=== PATIENT | female | born 1955 | race Caucasian/White ===

== ENCOUNTER 2019-01-21 12:38 | Outpatient (RCR) | payer MEDICARE, SELFPAY ==
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
--- NOTE | 2019-01-21 14:59 | PT.OPPOC ---
Current Diagnoses Cervicalgia (01/21/19) Visit Care Team Role Provider Type DORYS Champagne Primary Care Provider Advanced Piling Setter Specialty: [facility] Practice Address: [address] [place] [address], [address] Email: [email or web address] DORYS Wesley Attending Provider Advanced Piling Setter Specialty: [facility] Address: [address] [place] [address], [address] Email: [email or web address] Plan Of Care PT-OP-T Assessment and Plan Start: 01/21/19 13:03 Freq: Status: Active Protocol: Document 01/21/19 13:05 MB (Rec: 01/21/19 14:51 MB [id number]) Physical Therapy Assessment Goals 1 Short Term Goal (STG) Pt will understand benefits of follow-up with physician about possible post-herpatic treatment. Pt will understand benefits of OPOT for left elbow deficits. Goal met this date, 01/21/19. Progress Towards Goals Progress Towards Goals Goals Met Assessment Summary Assessment Pt is a 63 y/o female presenting with reports of improved neck and right UE C7 distribution pain. She reports ongoing neuropathic pain sxs in right UE C5 distribution in setting of rash and recent shingles. Pt presents with normal right UE strength and prefers seeing her chiropractor for manual care. She presents with left elbow ROM deficits in setting of recent left elbow fx. PT educates pt in the benefits of follow-up with re: possible post-herpatic pain treatment and OPOT for left elbow deficits. No current OPPT needs. Will d/c PT. Physical Therapy Plan Frequency and Duration Frequency of Treatment D/c PT Discharge Physical Therapy Discharge Comments No further OPPT needs at this time.
== END 2019-01-21 13:59 ==
LOC: PHYS 12:38
PROVIDERS: PCP Nurse Practitioner Family; Visit Provider Nurse Practitioner
DX: M54.2 Cervicalgia (principal)
CPT/HCPCS: 97161; 97535

== ENCOUNTER → 2019-08-31 09:34 | Outpatient (CLI) | payer MEDICARE, SELFPAY ==
[2019-08-31 11:46] LABS: Alanine Aminotransferase 22 IU/L (<35); Albumin 4.2 g/dL (3.5-5.0); Albumin Globulin Ratio 1.2 (1.0-2.8); Alkaline Phosphatase 56 U/L (38-126); Aspartate Aminotransferase 29 IU/L (14-36); Bilirubin Total 0.4 mg/dL (0.2-1.3); Blood Urea Nitrogen 18 mg/dL (7-17); Calcium 9.6 mg/dL (8.4-10.2); Carbon Dioxide 27 mmol/L (22-32); Chloride 106 mmol/L (98-107); Cholesterol 192 mg/dL (140-199); Estimated Glomerular Filt Rate > 60.0 mL/min (>60); Globulin 3.4 g/dL (1.7-4.1); Glucose 84 mg/dL (80-110); HDL Cholesterol 44 mg/dL (40-60); HEMOLYSIS < 15 (0-50); LDL Cholesterol Calculated 119 mg/dL (<100); Potassium 4.5 mmol/L (3.4-5.1); Sodium 140 mmol/L (137-145); Total Protein 7.6 g/dL (6.3-8.2); Triglycerides 145 mg/dL (35-150)
[2019-08-31 11:59] LABS: Hemoglobin 12.9 g/dL (12.0-16.0); Mean Corpuscular HGB Conc 33.9 % (30-36); Mean Corpuscular Hemoglobin 31.8 PG (26-34); Platelet Count 238 X10^3/uL (150-400); Red Blood Cell Count 4.04 X10^6/uL (4.0-5.2); Red Cell Distribution Width 14.1 % (11.6-14.8); White Blood Cell Count 4.9 X10^3/uL (4.5-11.0)
[2019-08-31 12:35] LABS: Vitamin B12 951 pg/mL (239-931)
[2019-09-01 00:25] LABS: COVID19 Sendout Not Detected (Not Detect)
== END ==
PROVIDERS: PCP Nurse Practitioner Family; Referring Provider Nurse Practitioner Family; Visit Provider Nurse Practitioner
DX: Z00.00 Encounter for general adult medical examination without abnormal findings (principal); Z13.6 Encounter for screening for cardiovascular disorders; Z01.812 Encounter for preprocedural laboratory examination; R53.83 Other fatigue
CPT/HCPCS: 36415; 80053; 80061; 82607; 85027; 87635

== ENCOUNTER 2019-09-03 08:58 | Day surgery (SDC) | payer MEDICARE, SELFPAY ==
--- NOTE | 2019-09-03 | PATH_ITS ---
[facility] Accession Number: [id number] . 01 Material submitted: . PART A: colon - COLON POLYP AT 130 CM PART B: colon - COLON POLYP AT 45 CM PART C: colon - COLON POLYP AT 20 CM PART D: colon - COLON POLYP AT 10 CM PART E: rectum - RECTAL WALL BIOPSY . 02 Diagnosis: A. Colon, Polyp at 130 cm, Biopsy: Multiple fragments of tubular adenoma. . B. Colon, Polyp at 45 cm, Biopsy: Polypoid granulation tissue, consistent with inflammatory polyp. Negative for dysplasia and malignancy. . C. Colon, Polyp at 20 cm, Biopsy: Tubular adenoma. . D. Colon, Polyp at 10 cm, Biopsy: Invasive adenocarcinoma, moderately differentiated. Arises in a background of tubular adenoma. Lymphovascular invasion not identified. Carcinoma is present at inked, cauterized biopsy edge. Please see comment. . E. Rectal Wall, Biopsy: Hyperplastic rectal mucosa. Negative for dysplasia and malignancy. [facility] 09/06/2019 1436 Local . 02 Comment: D. As part of routine rn clinical quality, Dr. Hardin also reviewed part D and agrees with the diagnosis. Dr. Mckeon gave preliminary results to [place] in Dr. Caceres's office on 09/06/2019. Mismatch repair immunohistochemistry will be performed and the results reported as an addendum. . 02 Electronically signed: . Mariella Mckeon MD, Pathologist NPI- [id number] . 01 Gross description: . A. Received in formalin, labeled polyp at 130 cm, are multiple fragments of goins, soft tissue measuring 1.3 x 0.8 x 0.4 cm in aggregate. All fragments are entirely submitted in cassette A1. B. Received in formalin, labeled colon polyp at 45 cm, are multiple fragments of goins, soft tissue measuring 1.2 x 0.6 x 0.3 cm in aggregate. All fragments are entirely submitted in cassette B1. C. Received in formalin, labeled colon polyp at 20 cm, is one fragment of goins, soft tissue measuring 0.4 x 0.4 x 0.3 cm. The fragment is entirely submitted in cassette C1. D. Received in formalin, labeled CP at 10 cm, are multiple fragments of goins, soft tissue measuring 2.5 x 1.5 x 0.5 cm in aggregate and two larger pieces of goins, soft tissue measuring 2.5 x 2.0 x 1.3 cm to 0.9 x 0.5 x 0.5 cm. The smaller fragments are submitted in aggregate in cassette D1. The first piece of tissue is inked, serially sectioned into six slices, and entirely submitted in cassettes D2 and D3, with three slices per cassette. The second piece of tissue is inked, serially sectioned into four slices, and entirely submitted in cassette D4. E. Received in formalin, labeled rectal wall biopsy, is one fragment of goins, soft tissue measuring 0.4 x 0.3 x 0.3 cm. The fragment is entirely submitted in cassette E1. ([id number]) /FRR 09/04/2019 1024 Local . 02 Pathologist provided ICD-10: C18.9, D12.6 . 02 CPT . 535961, 715861, 180245, 566763, 648400, [id number], [id number] Performed at: 01 [facility] [address] [id number] MD Chevy Baker MD Phone: [phone] Performed at: 02 [facility] [address] [address] [employer], [place] [id number] MD aMriella Mckeon MD Phone: [phone]
[2019-09-03 09:23] VITALS: BP 163/84; PULSE 67; RESP 16; TEMP 36.4; O2SAT 100; BMI 32.9
[2019-09-03] MEDS: SODIUM CHLORIDE 0.9% 1,000 ML 200 ML IV (09:30)
--- NOTE | 2019-09-03 09:43 | PM.HP.1 ---
History of Present Illness History of Present Illness Date Patient Seen: 09/03/19 Time Patient Seen: 09:43 Chief complaint: [id number] Narrative: This is a 64-year-old woman who is never had a colonoscopy. She denies any personal history of hematochezia, melena, unexplained abdominal pain, or unexplained weight loss. She denies any family history of colorectal cancers or polyps. She denies any medical problems or surgical history. She says she does not take any medications. She denies allergies ROS Thirteen system review is otherwise negative other than as mentioned below and in HPI. PE: GENERAL: Well groomed and cooperative. Appears stated age. Answers questions promptly and appropriately. Vital signs noted. HENT: Normocephalic, atraumatic. Hearing intact. EYES: Conjunctiva pink, sclera white, no periorbital swelling. CARDIOVASCULAR: Regular rate. No pedal edema. RESPIRATORY: Non-tachypneic, breathing comfortably on room air. GASTROINTESTINAL: Abdomen soft and non-distended GENITALURINARY: No flank tenderness. MUSCULOSKELETAL: Equal tone and mass bilaterally. SKIN: Warm, dry, soft, appropriate color for ethnicity. No other lesions, rashes, or wounds. NEURO: Alert and Oriented X 3. No gross sensory deficits, or cognitive issues. PSYCH: Appropriate affect and mood. Patient History Medical History Chicken pox (Resolved) Fractures (Resolved ~2011) Surgical History Anesthesia (Resolved) History of nasal surgery (Resolved ~1997) History of surgery on arm (Resolved ~2011) Family & Social History Family History Mother Hypertension Hyperlipidemia Social History: household members spouse Tobacco & Substance use: Smoking Status Never smoker alcohol intake current alcohol intake frequency holiday/special occasion Substance Use Type does not use Meds Home Medications and Allergies Home Medications Medication Instructions Recorded Confirmed Type EHT PO 12/22/18 History Probiotic PO 12/22/18 History cholecalciferol (vitamin D3) 100 4,000 unit PO DAILY 12/22/18 12/22/18 History mcg (4,000 unit) capsule Allergies Allergy/AdvReac Type Severity Reaction Status Date / Time No Known Drug Allergies Allergy Verified 09/03/19 09:11 Exam Vital Signs (past 8 hours): - 09/03/19 09:23 Temperature 97.5 F L Pulse Rate 67 Respiratory Rate 16 Blood Pressure 163/84 H Pulse Oximetry 100 Oxygen Delivery Method Room Air Assessment & Plan Assessment & Plan narrative: Risks and benefits of screening colonoscopy and possible polypectomy were discussed with the patient including risk of bleeding, perforation, need for additional procedures, risks of anesthesia. The patient desires to proceed with the colonoscopy procedure. COVID-19 COVID-19 status: Negative Result date/Date tested (Pos, Neg/Pending): 08/31/19 Time Spent With Patient Time with patient: 15-24 minutes
--- NOTE | 2019-09-03 09:48 | P.OP.ENDO_ITS ---
Operative Date/Time/Diagnoses Date of procedure: 09/03/19 Time of procedure: 09:49 Pre-op diagnosis: Average risk for colon cancer, no prior colonoscopy Procedure & Clinicians Study performed: 1. Colonoscopy, polypectomy times 3 with hot snare 2. Polypectomy x1 with cold forceps 3. Rectal wall biopsy x1 with cold forceps 4. Tattoo of rectum at location of large polyp removed piecemeal and rectal wall biopsy Same procedure as scheduled: Yes Indications: 64-year-old woman who never had a colonoscopy before Surgeon: Sendy Caceres Procedure Notes SCOAP/Timeout: Performed Procedure in detail: The patient was brought to the room and placed in left lateral decubitus position with all bony prominences padded. A time-out was performed and then the patient was given procedural sedation starting with 2 mg of Versed and 100 mcg of fentanyl. She received a total of 5 mg of Versed and 200 micro g of fentanyl for the procedure. Vitals were monitored throughout the procedure and remained stable. Once adequately sedated, the procedure was begun. A rectal exam was performed revealing no abnormalities. The colonoscope was then introduced to the rectum and advanced to the cecum in the usual fashion. The cecum was identified by the appendiceal orifice, the mucosal tri- fold, and the ileocecal valve. The scope was then retracted while rotating side to side and examining each mucosal fold. A 1 cm polyp was found at 130 cm and removed completely with hot snare. A complex polyp was seen at 45 cm with both a pedunculated and sessile component. It was removed piecemeal with hot snare and cold forceps. Small polyp was seen at 27 cm which was removed completely with cold forceps. A large 2 cm polyp was seen at 10 cm in the rectum, and was removed piecemeal. The area was tattooed in 5 locations above and below the polypectomy site with 1 cc per location. The rectal wall next to the polyp was biopsied as it appeared to be hypercellular and abnormal although not part of the polyp. At the conclusion of the procedure retroflexion was performed and small grade 1-2 internal hemorrhoids without stigmata of bleeding were seen. The scope was then withdrawn from the rectum the procedure was concluded. The patient tolerated the procedure well and was transferred to the PACU in stable condition. Scope withdrawal time: 38 Sedation minutes: 49 Findings: possible cancer and other findings (Multiple polyps, 1 very large in the rectum with surrounding mucosal abnormality) Specimen(s): other (Polyp from 130 cm, polyp from 45 cm, polyp from 27 cm, polyp from 10 cm, rectal wall biopsy from 10 cm) Impression: Multiple polyps of various sizes including 1 very large polyp in the rectum which is suspicious for cancer. Post-procedure Recommendations: Other recommendation (Follow-up on pathology results, and meet back in the office to discuss next steps depending on the pathology results) Follow up: weeks (Follow-up in my office in 1 week to discuss pathology results) Disposition: PACU
[2019-09-03] MEDS: MIDAZOLAM 5 MG/5 ML VIAL IV (09:50)
[2019-09-03] MEDS: fentaNYL 250 MCG/5 ML INJ IV (09:51)
[2019-09-03] MEDS: fentaNYL 100 MCG/2 ML INJ IV (10:02)
[2019-09-03 10:46] VITALS: BP 146/78; PULSE 60; RESP 16; TEMP 36.4; O2SAT 100
[2019-09-03 10:50] VITALS: BP 150/77; PULSE 64; RESP 16; O2SAT 100
[2019-09-03 11:14] VITALS: BP 149/72; PULSE 59; RESP 16; TEMP 36.4; O2SAT 97
== END 2019-09-03 11:24 | disposition home or self-care (01) ==
PROVIDERS: PCP Nurse Practitioner Family; Referring Provider Surgery; Visit Provider Surgery
PROC: 0DJD8ZZ Inspection of Lower Intestinal Tract, Via Natural or Artificial Opening Endoscopic (ICD-10-PCS; CPT 45378; principal; 2019-09-03 10:00)
DX: K64.0 First degree hemorrhoids (principal); D12.6 Benign neoplasm of colon, unspecified; C18.9 Malignant neoplasm of colon, unspecified; Z12.11 Encounter for screening for malignant neoplasm of colon
CPT/HCPCS: 45385; 45380; 45381; 99152; 99153; J2250; J3010

== ENCOUNTER → 2019-09-28 09:45 | Outpatient (CLI) | payer MEDICARE, SELFPAY ==
[2019-09-28 10:28] LABS: Estimated Glomerular Filt Rate > 60.0 mL/min (>60)
--- NOTE | 2019-09-28 10:49 | DI.CT.S_ITS ---
PROCEDURE: CT CHEST ABD PEL W CON INDICATIONS: colon cancer, rule out metastatic disease TECHNIQUE: After the administration of intravenous contrast, 5 mm thick sections acquired from the lung apices to the symphysis. 5 mm coronal and sagittal reformats were performed, with additional 7 mm MIP reformats through the lungs. For radiation dose reduction, the following was used: automated exposure control, adjustment of mA and/or kV according to patient size. COMPARISON: None. FINDINGS: Image quality: Excellent. CHEST: Lungs and pleura: No acute airspace opacities. Mild pleural apical scarring. 3 mm pulmonary nodule in the left lower lobe, (2/231). No mass. No pleural effusions or pneumothorax. Central and peripheral airways appear patent and normal in caliber. Mediastinum: Heart size is normal. No pericardial effusion. No mediastinal or hilar adenopathy by size criteria. Thoracic aorta and central pulmonary arteries are normal in size. Focus of gas in the main pulmonary artery likely iatrogenic. Esophagus is normal in caliber. Small hiatal hernia. Chest wall: No axillary or supraclavicular adenopathy by size criteria. Thyroid gland is unremarkable. ABDOMEN: Solid organs: Liver is normal in size and enhancement. No focal hepatic lesion. Gallbladder is distended. No gallstones seen. No pericholecystic fluid. Biliary system is non dilated. Pancreas enhances normally. Spleen is normal in size and enhancement. No adrenal nodules. Kidneys demonstrate normal size and enhancement, without hydronephrosis. Peritoneum and bowel: Bowel loops demonstrate normal wall thickness and caliber. Diverticulosis. Appendix is within normal limits in caliber. There is a small calcified appendicoliths, (4/93). No free fluid or air. Nodes and vessels: No retroperitoneal or mesenteric adenopathy by size criteria. Small right lower quadrant lymph nodes. No obvious mesorectal lymph nodes. Aorta and inferior vena cava are normal in size. Miscellaneous: No ventral hernias. PELVIS: Genitourinary: Bladder wall thickness is normal. Retroverted uterus. Miscellaneous: No inguinal hernias or adenopathy. Right buttocks injection granuloma. Bones: No suspicious bony lesions. No vertebral body compression fractures. IMPRESSION: No metastatic disease identified. No focal hepatic lesions seen. No enlarged adenopathy. A 3 mm pulmonary nodule in the left lower lobe. Unlikely significant in the absence of other sites of metastatic disease. Dictated by: Ephraim Qureshi M.D. on 09/28/2019 at 11:40 Approved by: Ephraim Qureshi M.D. on 09/28/2019 at 11:52
== END ==
PROVIDERS: PCP Nurse Practitioner Family; Referring Provider Surgery; Visit Provider Surgery
DX: C20 Malignant neoplasm of rectum (principal); R91.1 Solitary pulmonary nodule
CPT/HCPCS: 36415; 71260; 74177; 82565; Q9967

== ENCOUNTER → 2019-10-04 14:15 | Outpatient (CLI) | payer MEDICARE, SELFPAY ==
--- NOTE | 2019-10-04 14:19 | DI.MRI.S_ITS ---
PROCEDURE: MR PELIS WO/W CON INDICATIONS: Evaluate stage of rectal cancer TECHNIQUE: Coronal HASTE, sagittal T2 FSE, axial T1 FSE, axial and coronal nonbreath-hold T2 FSE. Axial dynamic VIBE during administration of contrast. Post-contrast axial and coronal VIBE/2-D FLASH with fat saturation from the iliac crests to the symphysis. Optional diffusion weighted imaging and ADC may be performed. COMPARISON: [facility], CT, CT CHEST ABD PEL W CON, 09/28/2019, 10:45. FINDINGS: Image quality: Excellent. Rectum: Morphology: Semi circumferential, with relatively sparing of only a small portion of the anterior wall of the rectum. This morphology is best seen inferiorly, series 4, image 14. There is craniocaudad extensive tumor where circumferential involvement likely is present at the upper 3rd of the rectum morphologically. Clock face of tumor involvement: 11:00 a.m.-1:00 a.m. Involvement inferiorly, see series 4, image 14. Mucinous (high T2 signal): Absent. Craniocaudal length: 6.1 cm Distance to anal verge: 2.4 cm, with tumor tapering to the upper margin of the anal-rectal junction. Distance to top of sphincter complex/anorectal junction: The tapering inferior margin of the tumor is well-visualized on series 6, image 10, extending virtually to apposition of the upper border of the anal-sphincter complex. Relationship to inferior peritoneal reflection: Tapering superiorly, and terminating just above the inferior peritoneal reflection. Tumor at or below puborectalis sling: Tumor involvement appears to extend below the puborectalis sling. T staging: Depth of extramural invasion: None found.. Extramural vascular invasion: None found. T3 tumors only: distance to mesorectal fascia (circumferential resection margin): Not applicable Pelvic organ involvement: Genitourinary: None. Pelvic sidewall (obturator internus, piriformis, ischiococcygeus muscles): None. Pelvic floor (pubococcygeus, iliococcygeus, puborectalis, levator plate): None. Sacrum: None. Vessels (internal and external iliac arteries and veins): None. Nerves (lumbosacral nerve roots): None. Regional lymph nodes (mesorectal, inguinal, iliac): None found. Other bowel and peritoneum: No pathologic free pelvic fluid. More proximal colon and small bowel loops are normal in caliber. Bones: Marrow is normal in overall signal. IMPRESSION: The rectal carcinoma present where well visualized is semi circumferential inferiorly and may become circumferential more superiorly at approximately the peritoneal reflection level and just below. The involvement tapers inferiorly and terminates at the upper margin of the anal-rectal junction. Direct invasion through the rectal serosal surface is not found, no adjacent adenopathy is seen. No regional metastatic disease is identified. Dictated by: Speedy Baker M.D. on 10/04/2019 at 16:37 Approved by: Speedy Baker M.D. on 10/04/2019 at 16:55
== END ==
PROVIDERS: PCP Nurse Practitioner Family; Referring Provider Surgery; Visit Provider Surgery
DX: C20 Malignant neoplasm of rectum (principal)
CPT/HCPCS: 72197; A9579

== ENCOUNTER → 2019-10-14 11:32 | Outpatient (CLI) | payer MEDICARE, SELFPAY ==
[2019-10-14 12:31] LABS: Carcinoembryonic Antigen 0.5 ng/mL (0.1-3.0)
== END ==
PROVIDERS: PCP Nurse Practitioner Family; Referring Provider Surgery; Visit Provider Surgery
DX: C20 Malignant neoplasm of rectum (principal)
CPT/HCPCS: 36415; 82378; 99214

== ENCOUNTER → 2019-11-22 11:50 | Outpatient (CLI) | payer MEDICARE, SELFPAY ==
--- NOTE | 2019-11-22 12:10 | DI.MG.S_ITS ---
Patient Name: CHRISTINA SINGLETARY date: 1955 Sex: F Attending Physician: Sridevi Indications: Date: 11/22/2019 11:53 At the request of: SHANNON LOCKHART Procedure: MM screening mammo BI BILATERAL DIGITAL SCREENING MAMMOGRAM 3D/2D WITH CAD: 11/22/2019 CLINICAL: Routine screening. Comparison is made to exams dated: 02/19/2017 mammogram, 04/22/2014 mammogram, and 04/05/2014 mammogram - outside location. There are scattered fibroglandular elements in both breasts. Current study was also evaluated with a Computer Aided Detection (CAD) system. There is a new focal asymmetry in the left breast central to the nipple posterior depth. No other significant masses, calcifications, or other findings are seen in either breast. IMPRESSION: INCOMPLETE: NEEDS ADDITIONAL IMAGING EVALUATION The new focal asymmetry in the left breast likely represents a cyst and is indeterminate. Additional views with possible ultrasound are recommended. This exam was interpreted at Station ID: [id number]. NOTE: For mammograms, a report in lay terms will be sent to the patient. Approximately 15% of breast malignancies will not be visualized mammographically. In the management of a palpable breast mass, a negative mammogram must not discourage biopsy of a clinically suspicious lesion. Electronically Signed By: Shavon ramirez/citlalli:11/22/2019 15:33:31 letter sent: Additional Imaging Needed ACR BI-RADS Category 0: Incomplete [id number]
== END ==
PROVIDERS: PCP Nurse Practitioner Family; Referring Provider Nurse Practitioner Family; Visit Provider Nurse Practitioner Family
DX: Z12.31 Encounter for screening mammogram for malignant neoplasm of breast (principal)
CPT/HCPCS: 77063; 77067

== ENCOUNTER → 2020-01-06 09:37 | Outpatient (CLI) | payer MEDICARE, SELFPAY ==
--- NOTE | 2020-01-06 09:40 | DI.US.S_ITS ---
LIMITED ULTRASOUND OF LEFT BREAST AND AXILLA: 01/06/2020 CLINICAL: Patient returns today to evaluate a focal asymmetry in the left breast. Comparison is made to exams dated: 01/06/2020 mammogram, 11/22/2019 mammogram - [facility], and 02/19/2017 mammogram - outside location. Color flow ultrasound of the left breast axilla was performed. Mckeon scale images of the real-time examination were reviewed. There is a 0.4 cm x 0.5 cm x 0.5 cm taller than wide irregular mass with a circumscribed margin in the left breast at 4 o'clock posterior depth 9 cm from the nipple. This irregular mass is hypoechoic. This correlates with mammography findings. No significant abnormalities were seen sonographically in the left axilla. IMPRESSION: SUSPICIOUS OF MALIGNANCY The 0.4 cm x 0.5 cm x 0.5 cm taller than wide irregular mass in the left breast is at a low suspicion for malignancy. An ultrasound guided biopsy is recommended. The findings and recommendations were discussed with the patient by the onsite radiologist, Dr. Forbes, at the time of the exam. This exam was interpreted at Station ID: [id number]. Electronically Signed By: Wayne núñez/citlalli:01/06/2020 12:08:15 letter sent: Biopsy Required Ultrasound BI-RADS: 4a Low suspicion for malignancy
--- NOTE | 2020-01-06 09:40 | DI.MG.S_ITS ---
UNILATERAL LEFT DIGITAL DIAGNOSTIC MAMMOGRAM 3D/2D WITH ADDITIONAL VIEWS: 01/06/2020 CLINICAL: Additional evaluation requested from prior study. Comparison is made to exams dated: 11/22/2019 mammogram - [facility], 02/19/2017 mammogram, and 04/22/2014 mammogram - outside location. There are scattered fibroglandular elements in left breast. There is a new 4 mm focal asymmetry in the left breast at 4 o'clock posterior depth. This is seen in additional views. No other significant masses or calcifications are seen in the breast. IMPRESSION: INCOMPLETE: NEEDS ADDITIONAL IMAGING EVALUATION The new 4 mm focal asymmetry in the left breast is indeterminate. An ultrasound is recommended. This exam was interpreted at Station ID: [id number]. NOTE: For mammograms, a report in lay terms will be sent to the patient. Approximately 15% of breast malignancies will not be visualized mammographically. In the management of a palpable breast mass, a negative mammogram must not discourage biopsy of a clinically suspicious lesion. SUMMARY: Targeted ultrasound is recommended for further evaluation and will be scheduled immediately following this exam. Electronically Signed By: Wayne núñez/citlalli:01/06/2020 12:05:11 ACR BI-RADS Category 0: Incomplete [id number]
== END ==
PROVIDERS: PCP Nurse Practitioner Family; Referring Provider Nurse Practitioner Family; Visit Provider Nurse Practitioner Family
DX: R92.8 Other abnormal and inconclusive findings on diagnostic imaging of breast (principal); N63.23 Unspecified lump in the left breast, lower outer quadrant
CPT/HCPCS: 76642; 77065; G0279

== ENCOUNTER → 2020-02-23 | Outpatient (CLI) | payer MEDICARE, SELFPAY ==
--- NOTE | 2020-02-23 | PATH_ITS ---
[facility] Accession Number: [id number] . 01 Material submitted: . breast - LEFT BREAST MASS 4:00 9CMFN . 02 Diagnosis: Left Breast, Mass 4 o'clock 9 cm FN, Core Needle Biopsies: At least atypical ductal hyperplasia. Please see comment. MRV 03/01/2020 1431 Local . 02 Comment: The core needle biopsies show reactive stromal changes and possible edge of the lesion of interest with at least atypical ductal hyperplasia. In an area of reactive changes there are a few scattered single cells of interest adjacent to group of cells with focal loss of myosin and p63. However, additional H/E levels performed for further characterization do not contain the area of interest. Complete excision of the lesion is recommended for complete characterization. This case was also reviewed by Dr. Mi Ervin and Dr. Hardin, who agree with the interpretation. . 02 Electronically signed: . Mariella Mckeon MD, Pathologist NPI- [id number] . 01 Gross description: . Received one formalin-filled container, labeled with the patient's name and designated left breast mass 4 o'clock 9 cm FN. The specimen is received with a plastic filter in container, sample loose in container and consists of multiple fragments of yellow-goins soft tissue which range in size from 0.1 x 0.1 x 0.1 cm to 1.5 x 0.2 x 0.2 cm. The specimen is entirely submitted in one cassette. Collection date per container: 02/23/20. Possible collection time per requisition: 14:45. Total fixation time: Approximately 12 hours. (DC:[id number]) /ASHA 02/24/2020 0237 Local . 02 Microscopic: . Immunohistochemical stains were performed in an attempt to characterize the area of interest. All control stains showed appropriate reactivity. The myosin and p63 stains show focal apparent loss of myoepithelial cells around an area of interest. Please see interpretation. . INTERPRETATION: One of the areas of interest shows focal loss of myosin and p63. In an attempt to further characterize this lesion by examining deeper levels reveals that the area of interest is no longer present in the deeper levels. . * This test was developed and its performance characteristics determined by [facility]. It has not been cleared or approved by the U.S. Food and Drug Administration. The FDA has determined that such clearance or approval is not necessary. This test is used for clinical purposes. It should not be regarded as investigational or for research. . 02 Pathologist provided ICD-10: R92.8 . 02 CPT . 144442, X87327, O43019 Performed at: 01 [facility] [address] [id number] MD Chevy Baker MD Phone: [phone] Performed at: 02 [facility] [address] [place], [place] [id number] MD Mariella Mckeon MD Phone: [phone]
--- NOTE | 2020-02-23 | DI.MG.S_ITS ---
UNILATERAL LEFT DIGITAL DIAGNOSTIC MAMMOGRAM POST-NEEDLE BIOPSY: 02/23/2020 CLINICAL: Abnormal mammogram. Comparison is made to exams dated: 01/06/2020 mammogram, 11/22/2019 mammogram - [facility], and 02/19/2017 mammogram - outside location. There are scattered fibroglandular elements in left breast. There is a marker clip in the appropriate position in the left breast at 4 o'clock This marker clip placement is at the biopsy site. IMPRESSION: POST PROCEDURE MAMMOGRAM FOR MARKER PLACEMENT There was a successful marker clip placement in the left breast middle depth. This exam was interpreted at Station ID: [id number]. NOTE: For mammograms, a report in lay terms will be sent to the patient. Approximately 15% of breast malignancies will not be visualized mammographically. In the management of a palpable breast mass, a negative mammogram must not discourage biopsy of a clinically suspicious lesion. Electronically Signed By: Beto whitmore/:02/23/2020 15:59:01 ACR BI-RADS Category Post-procedure mammogram for marker placement
--- NOTE | 2020-02-23 13:36 | DI.US.S_ITS ---
ULTRASOUND GUIDED BIOPSY LEFT BREAST USING VACUUM DEVICE WITH MARKING DEVICE INSERTED AND POST DIGITAL MAMMOGRAPHIC IMAGIN02/23/2020 CLINICAL: Left breast mass. PATIENT CONSENT: Risks (minor bleeding, infection, vasovagal reaction and repeat procedure), benefits and alternatives were explained to the patient and written informed consent was obtained. Correlation is made to exams dated: 02/23/2020 mammogram, 01/06/2020 ultrasound, 01/06/2020 mammogram, 11/22/2019 mammogram - [facility], 02/19/2017 mammogram, and 04/22/2014 mammogram - outside location. An ultrasound guided biopsy using real-time ultrasound was performed for the 0.5 cm x 0.4 cm x 0.3 cm taller than wide circumscribed oval mass located in the left breast at 4 o'clock middle depth 9 cm from the nipple. This was described on the previous mammography and ultrasound reports. The skin was prepped in the usual manner. Local anesthetic was administered to the access site. A skin murphy was made in the breast. The abnormality was approached from the lateral aspect. A 13 gauge biopsy needle was placed adjacent to the abnormality under ultrasound guidance. Once the needle was documented to be in the correct location, five specimens were obtained using the Mammotome biopsy system. The patient received additional local anesthetic during the procedure. A Vision clip was inserted into the biopsy cavity. A skin adhesive and a sterile dressing were applied to the access site. Post procedure digital mammographic imaging demonstrates the location device at the targeted area. The specimens were sent to the laboratory for pathological analysis. IMPRESSION: ULTRASOUND GUIDED BIOPSY HIGH RISK BENIGN Ultrasound guided biopsy of the 0.5 cm taller than wide mass in the left breast at 4 o'clock middle depth 9 cm from the nipple was successful. Pathology indicates high risk benign atypical ductal hyperplasia (ADH). Pathology results are concordant with imaging findings. A surgical consultation is recommended. This exam was interpreted at Station ID: [id number]. Beto whitmore,slc/:03/06/2020 12:40:44
== END ==
LOC: US 13:36
PROVIDERS: PCP Nurse Practitioner Family; Referring Provider Nurse Practitioner Family; Visit Provider Nurse Practitioner Family
DX: N60.92 Unspecified benign mammary dysplasia of left breast (principal)
CPT/HCPCS: 19083; 77065

== ENCOUNTER → 2020-04-04 15:19 | Outpatient (CLI) | payer MEDICARE, SELFPAY ==
[2020-04-04 16:13] LABS: COVID19 -Nasal RAPID Negative (Negative)
== END ==
PROVIDERS: PCP Nurse Practitioner Family; Visit Provider Surgery
DX: Z01.812 Encounter for preprocedural laboratory examination (principal); Z20.822 Contact with and (suspected) exposure to COVID-19
CPT/HCPCS: 87635; C9803

== ENCOUNTER 2020-04-05 06:55 | Day surgery (SDC) | payer MEDICARE, SELFPAY ==
--- NOTE | 2020-04-05 | DI.MG.S_ITS ---
UNILATERAL LEFT DIGITAL DIAGNOSTIC MAMMOGRAM POST-NEEDLE BIOPSY: 04/05/2020 CLINICAL: Left breast lump. Comparison is made to exams dated: 02/23/2020 mammogram, 01/06/2020 mammogram, and 11/22/2019 mammogram - [facility]. There are scattered fibroglandular elements in left breast. There is a marker clip in the appropriate position in the left breast at 4 o'clock middle depth. There is wire localization IMPRESSION: POST PROCEDURE MAMMOGRAM FOR MARKER PLACEMENT Successful wire localization. Recommend specimen radiograph. This exam was interpreted at Station ID: [id number]. NOTE: For mammograms, a report in lay terms will be sent to the patient. Approximately 15% of breast malignancies will not be visualized mammographically. In the management of a palpable breast mass, a negative mammogram must not discourage biopsy of a clinically suspicious lesion. Electronically Signed By: Beto whitmore/:04/05/2020 10:30:47 ACR BI-RADS Category Post-procedure mammogram for marker placement
--- NOTE | 2020-04-05 | DI.MG.S_ITS ---
SPECIMEN LEFT BREAST: 04/05/2020 CLINICAL: Left breast specimen. Correlation is made to exams dated: 04/05/2020 mammogram, 02/23/2020 ultrasound biopsy, and 02/23/2020 mammogram - [facility]. A surgical biopsy specimen was imaged for the previous biopsy site located in the left breast at 4 o'clock middle depth. IMPRESSION: SPECIMEN The imaged specimen includes a biopsy clip and the distal portion of the localization wire. Waiting for pathology results. A final report will be issued when these become available. This exam was interpreted at Station ID: [id number]. Beto whitmore/:04/05/2020 14:18:18
--- NOTE | 2020-04-05 | PATH_ITS ---
[facility] Accession Number: [id number] . 01 Material submitted: . breast - LEFT BREAST LUMPECTOMY . 01 Clinical history: . LEFT BREAST LUMPECTOMY, WIRE IS LATERAL, DOUBLE STITCH IS DEEP, SINGLE IS SUPERIOR . 01 Diagnosis: A. 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 Extent: Present on one slide, largest microscopic dimension of 4 x 3 mm. 2. Nuclear grade: Low to intermediate. 3. Architectural pattern: Papillary, cribriform, and focally solid. 4. Necrosis: Not identified. 5. Calcifications: focally present, in association with benign breast tissue. 6. Resection margins: Negative, with the following distances to the closest margins: - Inferior margin: 3 mm. - Posterior margin: 5.5 mm. - All other margins: More than 10 mm. 7. Prognostic markers, performed on block A14, with the following findings: - Estrogen receptor status: Positive (more than 99% tumor cells staining, staining intensity: Strong). - Progesterone receptor status: Positive (95% tumor cells staining, staining intensity: Strong). - HER2: Negative by immunohistochemistry (0-1+). 8. Other findings: - Focal atypical lobular hyperplasia and focal flat epithelial atypia. - Background breast with fibrocystic change including columnar cell changes/columnar cell hyperplasia, focal cystic duct dilatation, focal sclerosing adenosis, and cystic apocrine metaplasia. - Biopsy site changes and clip are present. 9. Skin and nipple are not present for evaluation. 10. Regional lymph node status: No lymph nodes found or submitted. 11. Pathologic stage: pTis . COMMENT: The lesion consists of a 4 mm well-circumscribed multinodular proliferation of papillary carcinoma surrounded by thinly fibrotic stroma. The cells are round to ovoid with ample pink to best cytoplasm, low to intermediate nuclear grade, and show cribriform, papillary, and focally solid growth patterns with discrete papillae. Focally, within the contours of the lesion, and not outside, irregular glandular nests are present within a fibrotic stroma with hemosiderin-laden macrophages/background of biopsy site changes. Ancillary studies demonstrate loss of myoepithelial cells within these nests, within the fibrovascular cores and at the periphery of the lesion. Given the biopsy site changes, these findings do not support unequivocal renae conventional invasive adenocarcinoma, and are considered secondary to the biopsy site changes. 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 MRV 04/13/2020 0945 Local . 01 Electronically signed: . Anh Franks MD, Pathologist NPI- [id number] . 01 Gross description: . The specimen is received in formalin, labeled left breast lumpectomy and consists of a left lumpectomy specimen. Weight: 39 grams. Measurement: 8.2 cm from medial to lateral by 4.5 cm from anterior to posterior by 3.0 cm from superior to inferior. Skin Ellipse: Absent. Wire: Present penetrating the lateral inferior aspect. Margins: The specimen is oriented with a wire designated lateral, a double suture designated deep, and a single suture designated superior. The specimen is inked as follows: superior blue, inferior green, anterior red, posterior black, medial yellow and lateral orange. Sliced: From lateral to medial into 16 slices. There is a silver metallic balloon-shaped biopsy clip within slice 7 and a 0.3 x 0.3 x 0.3 cm firm goins-white biopsy site within slices 10 and 11. Distance to margins from biopsy site: 0.5 cm from the inferior margin, 0.7 cm from the posterior margin, 1.5 cm from the superior margin, and greater than 2 cm from all remaining margins. Other: Remaining cut surfaces are composed of approximately 85% goins-yellow lobulated adipose tissue and 15% goins-white fibrous tissue. Propellant Assembler sections are submitted. A1: slice 1, hobbies and crafts sales representative perpendicular sections of lateral margin. A2-A5: hobbies and crafts sales representative slices 2-5, lateral to biopsy marker (superior, inferior and posterior margins). A6: slice 6, lateral to biopsy marker (superior inferior and posterior margins). A7-A9: slice 7, site of biopsy marker, trisected and entirely submitted. A10: slice 8, medial to biopsy marker, inferior and posterior margins. A11: slice 9, medial to biopsy marker and lateral to biopsy site, superior, inferior and posterior margins. A12-A13: slice 10, biopsy site, bisected and entirely submitted. A14-A15: slice 11, biopsy site, bisected and entirely submitted. A16-A18: slices 12-14, medial to biopsy site, superior, inferior and posterior margins. A19: slice 15, entirely submitted. A20: slice 16, hobbies and crafts sales representative perpendicular sections of medial margin. Formalin fixation time: Approximately 64 hours. (EA:cmc10 [id number]) /MRV 04/07/2020 1124 Local . 01 Microscopic: . Myoepithelial markers are performed on block A14 in order to evaluate the papillary carcinoma; external and internal controls for all markers are staining appropriately. The papillary carcinoma shows the following immunoprofile: . * P63: Completely lost within the lesion and its periphery. * Smooth muscle myosin: Lost within the lesion and its periphery (although focal staining is present, it is wispy and faint, and along with the immunohistochemical findings of p63, it is considered lost and likely secondary to staining of capillary vessels). * CK5/6: Completely lost within the lesion and its periphery. . - In block A12, a focal intraductal lobular proliferation is noted. Beta-catenin and e-cadherin immunostains, with appropriately staining external controls, are performed and are attenuated/lost within this focus, in support of focal atypical lobular hyperplasia. . Predictive marker immunohistochemical studies are performed on block A14 with the papillary carcinoma showing the following results: . Estrogen receptor (SP1): Positive (more than 99% tumor cells staining, strong intensity). Progesterone receptor (1E2): Positive (90% of tumor cells staining, strong intensity). HER2 (4B5): Negative by immunohistochemistry (0-1+). . Internal controls for ER and GA are present. Cold ischemic time is <5 minutes. The scoring criteria for breast biomarkers by immunohistochemistry is based on the ASCO/CAP guidelines (Mark AC et al, J Clin Oncol: 2018 Sep 16;36(20):6905-0437 and Lula SANTACRUZ et al, Arch Pathol Lab Med: 2009;134(6):907-62). Deparaffinized sections of formalin fixed tissue (along with appropriate positive controls) are incubated with the above antibody(s). Using the automated [place] stainer, tissue is incubated with the designated antibody which is then localized by a non-biotin, dual polymer detection system. The external controls are reviewed for appropriate reactivity and found to be adequate. Results on the target cell population are indicated above. These tests have not been validated on decalcified tissue. This test was developed and its performance characteristics determined by [employer]. It has not been cleared or approved by the U.S. Food and Drug Administration. The FDA has determined that such clearance or approval is not necessary. This test is used for clinical purposes. It should not be regarded as investigational or for research. . 01 Pathologist provided ICD-10: D05.82 . 01 CPT . 971655, T39029, Y09818, 386833, 200546, 042278 Performed at: 01 [facility] [address] [place] [address], [place], [place] [id number] MD Chevy Baker MD Phone: [phone]
--- NOTE | 2020-04-05 06:59 | DI.US.S_ITS ---
ULTRASOUND GUIDED WIRE LOCALIZATION LEFT BREAST: 04/05/2020 CLINICAL: Left breast lump. Correlation is made to exams dated: 04/05/2020 specimen, 04/05/2020 mammogram, 02/23/2020 ultrasound biopsy, 02/23/2020 mammogram, 01/06/2020 ultrasound, and 01/06/2020 mammogram - [facility]. A wire localization using ultrasound guidance was performed for the marker clip located in the left breast at 4 o'clock anterior depth. The skin was prepped in the usual manner. Local anesthetic was administered to the access site. The localization was approached from the lateral aspect. A wire was inserted into the targeted area under ultrasound guidance. IMPRESSION: WIRE LOCALIZATION Wire localization for the marker clip in the left breast at 4 o'clock anterior depth was successful. Waiting for pathology results. A final report will be issued when these become available. This exam was interpreted at Station ID: [id number]. Beto whitmore/:04/05/2020 14:20:08
[2020-04-05 07:09] VITALS: BP 148/81; PULSE 64; RESP 16; TEMP 36.2; O2SAT 99; BMI 31.7
[2020-04-05] MEDS: LACTATED RINGERS 1,000 ML 42 ML IV (09:17)
--- NOTE | 2020-04-05 09:19 | SUR.PREOP ---
Patient back from Mammo in stable condition. Denies any pain. Awaiting anesthesiology.
--- NOTE | 2020-04-05 09:57 | PM.PREOP ---
Pre-operative Note COVID-19 COVID-19 status: Negative Result date/Date tested (Pos, Neg/Pending): 04/04/20 Interval Note History & Physical reviewed/Exam performed by Physician: Yes Changes to H&P: No
[2020-04-05] MEDS: CEFAZOLIN 2 GM/100 ML FROZ.PIGGY IV (10:04)
--- NOTE | 2020-04-05 10:09 | SUR.OPER ---
Supine on padded OR bed, head on pillow, arms secured on padded arm boards at <90 degrees abduction, legs uncrossed, safety belt at thigh, tape over blanket over lower legs.
[2020-04-05] MEDS: BUPIVACAINE 0.25% W/ EPI (PF) 10 ML VIAL 20 ML INJ (10:22)
--- NOTE | 2020-04-05 10:59 | PM.OP.1 ---
Operative Date/Time/Diagnoses Date of procedure: 04/05/20 Time of procedure: 10:59 Pre-op diagnosis: left breast mass, atypical ductal hyperplasia Post-op diagnosis: same Procedure & Clinicians Procedure: Left breast lumpectomy for excisional biopsy with wire localization Same procedure as scheduled: Yes Indications: Left breast mass, atypical ductal hyperplasia on biopsy Surgeon: Sendy Caceres Click Yes if Unassisted: Yes Anesthesia Type: General Operative Notes Findings: on post op mammogram wire, specimen, and radiographic abnormality contained in specimen Specimen(s): other (left breast lumpectomy: wire latera, double stitch deep, single stitch superior) Estimated Blood Loss (mL): 2 Procedure in detail: The patient was brought into the OR and placed supine on the OR table. Sequential compression devices were placed on both legs and turned on. General anesthesia was induced and the patient was intubated by the anesthesiologist. Appropriate perioperative antibiotics were given. Surgical time out was performed. The left breast, chest wall and axilla were prepped and draped in sterile fashion. Surgical time out was performed. Local anesthetic was infiltrated into the skin at the appropriate location in the lower outer quadrant of the left breast, and a curvilinear incision was made at that site. Dissection was carried laterally between the subcutaneous fat and the breast tissue until the entry site of the wire was found, and the wire was clamped to the specimen to secure it, and then the remaining wire was brought into the wound from the outside. Dissection was continued circumferentially encompassing the mass, the wire, and the clip. Once the entire specimen was excised, it was marked and passed off the table for radiologic evaluation. Attention was then turned to the surgical wound. The wound was irrigated, and hemostasis was ensured with cautery. Additional local anesthetic was given in the skin, dermis, and subcutaneous fat using a total of 20 mL of 0.25% Marcaine with epi. At this point the dermis was closed with running 3-0 Vicryl suture. The skin was closed with running 4-0 Monocryl, and the skin edges were sealed with Dermabond. We received a call back from Radiology reporting that the specimen was appropriate, including the wire, the clip, and the mammographic abnormality. At this point the patient was transferred onto her hospital bed, and a breast binder was placed with extra padding in the lower outer quadrant of the left breast. The patient was then awakened from anesthesia and extubated. Needle sponge and instrument counts were correct x 2. The patient was transferred to the PACU in stable condition. Complications: none Post-operative Condition: stable Disposition: PACU
[2020-04-05 11:05] VITALS: BP 141/63; PULSE 84; RESP 12; TEMP 35.9; O2SAT 97
[2020-04-05 11:10] VITALS: BP 142/73; PULSE 73; RESP 12; O2SAT 98
[2020-04-05 11:15] VITALS: BP 145/72; PULSE 79; RESP 12; O2SAT 97
[2020-04-05 11:20] VITALS: BP 126/73; PULSE 75; RESP 12; O2SAT 98
[2020-04-05] MEDS: OXYCODONE/ACETAMINOPHEN 5/325 TABLET 1 TAB PO (11:26)
[2020-04-05 11:27] VITALS: BP 136/67; PULSE 77; RESP 12; TEMP 36.1; O2SAT 98
== END 2020-04-05 11:55 | disposition home or self-care (01) ==
PROVIDERS: PCP Nurse Practitioner Family; Referring Provider Nurse Practitioner Family; Visit Provider Surgery
PROC: (CPT 19301; principal; 2020-04-05 10:00)
DX: D05.82 Other specified type of carcinoma in situ of left breast (principal); Z17.0 Estrogen receptor positive status [ER+]
CPT/HCPCS: 19301; 19285; 76098; 77065; C1819; J0690; J1100; J2405; J2704; J3010

== ENCOUNTER → 2020-11-30 12:11 | Outpatient (CLI) | payer MEDICARE, SELFPAY ==
[2020-11-30 13:23] LABS: Hematocrit 38.2 % (36-46); Hemoglobin 12.6 g/dL (12.0-16.0); Mean Corpuscular HGB Conc 33.1 % (30-36); Mean Corpuscular Hemoglobin 31.1 PG (26-34); Mean Corpuscular Volume 93.9 fL (80-100); Platelet Count 218 X10^3/uL (150-400); Red Blood Cell Count 4.06 X10^6/uL (4.0-5.2); Red Cell Distribution Width 13.8 % (11.6-14.8); White Blood Cell Count 4.7 X10^3/uL (4.5-11.0)
[2020-11-30 13:41] LABS: Alanine Aminotransferase 20 IU/L (<35); Albumin 4.1 g/dL (3.5-5.0); Albumin Globulin Ratio 1.5 (1.0-2.8); Alkaline Phosphatase 53 U/L (38-126); Aspartate Aminotransferase 29 IU/L (14-36); BUN Creatinine Ratio 16.7 (6-22); Bilirubin Total 0.4 mg/dL (0.2-1.3); Blood Urea Nitrogen 11 mg/dL (7-17); Calcium 9.4 mg/dL (8.4-10.2); Carbon Dioxide 27 mmol/L (22-32); Chloride 108 mmol/L (98-107); Cholesterol 188 mg/dL (140-199); Estimated Glomerular Filt Rate > 60.0 mL/min (>60); Globulin 2.8 g/dL (1.7-4.1); Glucose 81 mg/dL (80-110); HDL Cholesterol 58 mg/dL (40-60); HEMOLYSIS < 15 (0-50); LDL Cholesterol Calculated 112 mg/dL (<100); Potassium 4.3 mmol/L (3.4-5.1); Sodium 140 mmol/L (137-145); Total Protein 6.9 g/dL (6.3-8.2); Triglycerides 91 mg/dL (35-150)
== END ==
PROVIDERS: PCP Nurse Practitioner Family; Referring Provider Nurse Practitioner Family; Visit Provider Nurse Practitioner Family
DX: C20 Malignant neoplasm of rectum (principal); Z13.6 Encounter for screening for cardiovascular disorders; N60.92 Unspecified benign mammary dysplasia of left breast; Z00.00 Encounter for general adult medical examination without abnormal findings; Z85.9 Personal history of malignant neoplasm, unspecified
CPT/HCPCS: 36415; 80053; 80061; 85027

== ENCOUNTER → 2021-02-23 11:40 | Outpatient (CLI) | payer MEDICARE, SELFPAY ==
--- NOTE | 2021-02-23 11:45 | DI.CT.S_ITS ---
PROCEDURE: CT CHEST ABD PEL W CON INDICATIONS: 3 MO FOLLOW UP TECHNIQUE: After the administration of oral and intravenous contrast, axial sections acquired from the supraclavicular neck to the pubic symphysis. Coronal reformats were performed. For radiation dose reduction, the following was used: automated exposure control, adjustment of mA and/or kV according to patient size. COMPARISON:[facility], CT, CT CHEST ABD PEL W CON, 09/28/2019, 10:45. FINDINGS: Image quality: Excellent. CHEST: Lower Neck: No enlarged lymph nodes. Thyroid: Within normal limits. Axillae: No enlarged lymph nodes. Chest Wall: Unremarkable. Lungs and Airways: A 3 mm nodule in the peripheral left lower lobe (240/3) appears unchanged when compared to the CT from 09/28/2019. No suspicious new pulmonary nodule. No acute consolidation. Pleura: No pneumothorax or pleural effusions. Heart: Heart size is normal. No pericardial effusion. Mild coronary artery calcifications. Thoracic Vessels: The aorta and pulmonary arteries demonstrate normal size. Mediastinum and Anabella: No enlarged lymph nodes. Esophagus: No wall thickening. Small hiatal hernia. ABDOMEN: Liver: No suspicious hepatic mass. Gallbladder: Unremarkable. Biliary ducts: Unremarkable. Pancreas: Unremarkable. Spleen: Unremarkable. Adrenal Glands: Unremarkable. Kidneys and Ureters: Unremarkable. Stomach and Bowel: Multiple diverticula are seen in the colon without signs of acute diverticulitis. No suspicious bowel wall thickening identified. Small hiatal hernia. Normal appendix. Prior appendicolith is no longer seen. Peritoneum: No abnormal intraperitoneal fluid. No free air. Ventral Wall: No hernia. Abdominal Nodes: No retroperitoneal or mesenteric adenopathy by size criteria. Vessels: Aorta and inferior vena cava are normal in size. PELVIS: Pelvic Organs: Unremarkable. Bladder: Unremarkable. Pelvic Nodes: No enlarged lymph nodes. No significant perirectal lymph nodes identified. Miscellaneous: No inguinal hernias are seen. Subcutaneous injection granulomas are seen in the right gluteal region. Bones: No suspicious osteolytic or osteoblastic lesion identified.. IMPRESSION: 1. No CT evidence of metastatic disease in the chest, abdomen, or pelvis. No significant lymphadenopathy. 2. Stable 3 mm left lower lobe pulmonary nodule is most likely benign. Dictated by: Wayne Costa M.D. on 02/23/2021 at 14:08 Approved by: Wayne Costa M.D. on 02/23/2021 at 14:18
[2021-02-23 12:21] LABS: Blood Urea Nitrogen 13 mg/dL (7-17)
[2021-02-23 12:49] LABS: BUN Creatinine Ratio 17.3 (6-22); Estimated Glomerular Filt Rate > 60.0 mL/min (>60)
== END ==
PROVIDERS: PCP Nurse Practitioner Family; Referring Provider Colon & Rectal Surgery; Visit Provider Colon & Rectal Surgery
DX: C20 Malignant neoplasm of rectum (principal); R91.8 Other nonspecific abnormal finding of lung field; I25.10 Atherosclerotic heart disease of native coronary artery without angina pectoris; K44.9 Diaphragmatic hernia without obstruction or gangrene; K57.90 Diverticulosis of intestine, part unspecified, without perforation or abscess without bleeding
CPT/HCPCS: 36415; 71260; 74177; 82565; 84520; Q9967

== ENCOUNTER → 2021-08-08 14:32 | Outpatient (CLI) | payer MEDICARE, SELFPAY ==
[2021-08-08 16:51] LABS: BUN Creatinine Ratio 29.6 (6-22); Blood Urea Nitrogen 24 mg/dL (7-17); Estimated Glomerular Filt Rate > 60 mL/min (>60)
[2021-08-08 17:21] LABS: Carcinoembryonic Antigen 0.8 ng/mL (0.1-3.0)
== END ==
PROVIDERS: PCP Registered Nurse Diabetes Educator; Referring Provider Colon & Rectal Surgery; Visit Provider Colon & Rectal Surgery
DX: C20 Malignant neoplasm of rectum (principal)
CPT/HCPCS: 36415; 82378; 82565; 84520

== ENCOUNTER → 2021-08-24 11:29 | Outpatient (CLI) | payer MEDICARE, SELFPAY ==
--- NOTE | 2021-08-24 | DI.CT.S_ITS ---
PROCEDURE: CT CHEST ABD PEL W CON INDICATIONS: Malignant neoplasm of rectum TECHNIQUE: After the administration of oral and intravenous contrast, axial sections acquired from the supraclavicular neck to the pubic symphysis. Coronal and sagittal reformats were performed. For radiation dose reduction, the following was used: automated exposure control, adjustment of mA and/or kV according to patient size. COMPARISON: [facility], MR, MR PELVIS WO/W CON, 10/04/2019, 14:33. [facility], CT, CT CHEST ABD PEL W CON, 09/28/2019, 10:45. [facility], CT, CT CHEST ABD PEL W CON, 02/23/2021, 13:09. FINDINGS: Image quality: Excellent. CHEST: Lower Neck: No enlarged lymph nodes. Thyroid: Unremarkable. Axillae: No enlarged lymph nodes. Chest Wall: Unremarkable. Lungs and Airways: No significant pulmonary nodules. Left lower lobe pulmonary nodule measuring 0.3 cm, (3/184), unchanged since 2019. Airways are clear. No mass. Pleura: No pneumothorax or pleural effusions. Heart: Heart size is normal. No pericardial effusion. Thoracic Vessels: The aorta and pulmonary arteries demonstrate normal size. Mediastinum and Anabella: No enlarged lymph nodes. Esophagus: No wall thickening. Probable small hiatal hernia. ABDOMEN: Liver: No focal lesion. Gallbladder: Unremarkable. Biliary ducts: Unremarkable. Pancreas: Unremarkable. Spleen: Unremarkable. Adrenal Glands: Unremarkable. Kidneys and Ureters: Unremarkable. Stomach and Bowel: No small bowel obstruction. Diverticulosis. No focal mass is identified. Normal appendix. Peritoneum: No abnormal intraperitoneal fluid. No free air. Ventral Wall: No hernia. Abdominal Nodes: No retroperitoneal or mesenteric adenopathy by size criteria. Vessels: Aorta and inferior vena cava are normal in size. PELVIS: Pelvic Organs: Uterus is unremarkable. Bladder: Unremarkable. Pelvic Nodes: No enlarged lymph nodes. Miscellaneous: No inguinal hernias are seen. Bones: No suspicious lesion. IMPRESSION: No metastatic disease identified. No enlarged lymph nodes. No focal liver lesion. Suspicious pulmonary nodules. Dictated by: Ephraim Qureshi M.D. on 08/24/2021 at 13:39 Approved by: Ephraim Qureshi M.D. on 08/24/2021 at 13:49
== END ==
PROVIDERS: PCP Registered Nurse Diabetes Educator; Referring Provider Colon & Rectal Surgery; Visit Provider Colon & Rectal Surgery
DX: C20 Malignant neoplasm of rectum (principal); R91.1 Solitary pulmonary nodule
CPT/HCPCS: 71260; 74177; Q9967

== ENCOUNTER → 2021-10-01 08:32 | Outpatient (CLI) | payer MEDICARE, SELFPAY ==
--- NOTE | 2021-10-01 08:34 | DI.MG.S_ITS ---
BILATERAL DIGITAL SCREENING MAMMOGRAM 3D/2D WITH CAD: 10/01/2021 CLINICAL: Routine screening. Breast cancer. Family history of breast cancer. Comparison is made to exams dated: 04/05/2020 mammogram, 02/23/2020 mammogram, 01/06/2020 mammogram, 11/22/2019 mammogram - [facility], and 02/19/2017 mammogram - outside location. There are scattered fibroglandular elements in both breasts. Current study was also evaluated with a Computer Aided Detection (CAD) system. There are benign post operative findings in the left breast. No significant masses, calcifications, or other findings are seen in either breast. There has been no significant interval change. IMPRESSION: BENIGN There is no mammographic evidence of malignancy. A 1 year screening mammogram is recommended. This exam was interpreted at Station ID: [id number]. NOTE: For mammograms, a report in lay terms will be sent to the patient. Approximately 15% of breast malignancies will not be visualized mammographically. In the management of a palpable breast mass, a negative mammogram must not discourage biopsy of a clinically suspicious lesion. Electronically Signed By: Ephraim buckner/citlalli:10/01/2021 12:06:10 letter sent: Normal Exam ACR BI-RADS Category 2: Benign Finding(s) [id number]
== END ==
PROVIDERS: PCP Registered Nurse Diabetes Educator; Referring Provider Registered Nurse Diabetes Educator; Visit Provider Registered Nurse Diabetes Educator
DX: Z12.31 Encounter for screening mammogram for malignant neoplasm of breast (principal); Z80.3 Family history of malignant neoplasm of breast
CPT/HCPCS: 77063; 77067